=== PATIENT | female | born 1995 | race African-American/Black ===

== ENCOUNTER 2017-07-16 17:58 | Emergency (ER) | payer OTHER ==
[~2017-07-16 17:58] MED LIST: CLIN150 PO; IBUP800T23 PO
[2017-07-16 18:11] VITALS: BP 134/81; PULSE 96; RESP 14; TEMP 99.2; O2SAT 99
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
[2017-07-16] MEDS ORDERED: IBUPROFEN 600 MG TAB PO ONE (19:30)
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
[2017-07-16] MEDS ORDERED: CYCLOBENZAPRINE HCL 10 MG TAB PO ONE (22:00)
[2017-07-16] MEDS ORDERED: CYCL10TA PO (22:02)
[2017-07-16] MEDS ORDERED: NAPR500T2 PO (22:02)
== END 2017-07-16 22:17 | disposition home or self-care (01) ==
LOC: NEPD 17:58
DX: S39.012A Strain of muscle, fascia and tendon of lower back, initial encounter (principal); Z88.0 Allergy status to penicillin; V43.62XA Car passenger injured in collision with other type car in traffic accident, initial encounter
CPT/HCPCS: 72050; 72072; 72110; 84703; 99283